=== PATIENT | female | born 1935 ===

== ENCOUNTER 2019-11-01 13:33 | Inpatient (IN) | payer OTHER, SELFPAY ==
[2019-11-01] MEDS ORDERED: Pantoprazole 40 MG VIAL ONE (14:06)
[2019-11-01 14:10] LABS: #Basophils 0.1 thou/uL (0.0-0.2); #Eosinphils 0.3 thou/uL (0.0-0.7); #Lymphocytes 1.9 thou/uL (1.20-3.40); #Monocytes 0.5 thou/uL (0.11-0.59); #Neutrophils 3.5 thou/uL (1.40-6.50); %Basophils 0.8 % (0.0-1.0); %Eosinophils 5.1 % (0.0-10.0); %Lymphocytes 30.2 % (21.0-51.0); %Monocytes 7.9 % (0.0-10.0); Hemoglobin 10.5 g/dL (12.0-16.0); Mean Corpuscular HGB CONC 33.7 g/dL (32.0-36.0); Mean Corpuscular Hemoglobin 31.4 pg (27.0-31.0); Mean Corpuscular Volume 93.3 fL (78.0-98.0); Mean Platelet Volume 8.5 fL (7.4-10.4); Platelet Count 178 thou/uL (130-400); RBC Distribution Width 13.2 % (11.5-14.5); Red Blood Cell (RBC) Count 3.35 mill/uL (4.20-5.40); White Blood Cell (WBC) Count 6.3 thou/uL (4.8-10.8)
[2019-11-01 14:17] LABS: Prothrombin Time 12.8 SEC (12.0-14.7)
--- NOTE | 2019-11-01 14:31 | RAD ---
Exam: Chest one view HISTORY:Nausea. Vomiting. Weakness. Comparison: None FINDINGS: Mediastinum: Rightward deviation of the trachea. Accentuation of the right mediastinum in part due to patient rotation. Nevertheless, there appears to be right hilar fullness. Cardiac silhouette: Normal Aorta: Unremarkable Pulmonary vessels: Normal Costophrenic angles: Small right-sided pleural effusion. LUNGS: Right hilar fullness. Mass cannot be excluded. Pneumothorax: None Osseous abnormalities: None IMPRESSION: 1. Right hilar fullness. The possibility of right hilar mass cannot be excluded. CT is recommended
[2019-11-01 14:34] LABS: ALT (SGPT) 9 U/L (8-55); AST (SGOT) 11 U/L (5-34); Albumin 3.4 g/dL (3.4-4.8); Alkaline Phosphatase 94 U/L (40-110); Anion Gap 9 mmol/L (10-20); BUN (Urea Nitrogen) 27 mg/dL (9.8-20.1); Bilirubin, Total 0.5 mg/dL (0.2-1.2); Calc. Creatinine Clearance 0 mL/min (70-130); Calcium 8.4 mg/dL (7.8-10.44); Carbon Dioxide 24 mmol/L (23-31); Chloride 111 mmol/L (98-107); Estimated GFR-MDRD 66; Globulin 2.5 g/dL (2.4-3.5); Glucose 75 mg/dL (83-110); Potassium 4.5 mmol/L (3.5-5.1); Protein, Total 5.9 g/dL (6.0-8.3); Sodium 139 mmol/L (136-145)
--- NOTE | 2019-11-01 15:40 | CT ---
EXAM: CT angiogram of the chest including 3-D rendering: HISTORY: Chest pain COMPARISON: None FINDINGS: There is adequate opacification of the pulmonary arteries. No evidence for aortic aneurysm or dissection. No convincing CT evidence for acute pulmonary embolism. There are some scattered very faint poorly defined groundglass opacity changes with a somewhat mosaic appearance of the chest bilaterally. No evidence for mediastinal mass or adenopathy. No evidence for pleural or pericardial effusion. The visualized upper abdomen is unremarkable. Evidence for moderately dilated proximal pulmonary artery segments evidence for pulmonary artery hype rtension. IMPRESSION: No convincing CT evidence for acute pulmonary embolism. Nonspecific bilateral groundglass opacity changes with a somewhat mosaic appearance of the chest. Peggy dence for dilated bilateral proximal pulmonary artery segments evidence for pulmonary artery hypertension.
[2019-11-01 17:12] LABS: Troponin I Less than 0.010 ng/mL (< 0.028)
[2019-11-01] MEDS ORDERED: Ondansetron ODT 4 MG TAB SL PRN (19:33)
[2019-11-01] MEDS ORDERED: Ondansetron PF 4 MG/2 ML Vial IVP PRN (19:33)
[2019-11-01] MEDS ORDERED: Pantoprazole 80 MG in Sodium Chloride 0.9% 100 ML IVPB SCH (19:45)
[2019-11-01 20:30] LABS: Hemoglobin 10.2 g/dL (12.0-16.0)
[2019-11-01 20:56] LABS: Troponin I Less than 0.010 ng/mL (< 0.028)
[2019-11-01 21:13] VITALS: BMI 31.4
[2019-11-01] MEDS ORDERED: Sodium Chloride 0.9% (PF) 10 ML VIAL FS PRN (22:58)
--- NOTE | 2019-11-01 23:47 | HP ---
CHIEF COMPLAINT: Feeling tired. HISTORY OF PRESENT ILLNESS: The patient is an 84-year-old female with a past medical history of hypertension, who presents to the hospital with complaints of 2 to 3 days of passing dark stools with some bright red blood. The patient also complained of feeling tired with some shortness of breath on exertion. Fecal occult blood test was positive in the ER. Hemoglobin appeared to be stable. The patient will be admitted to the hospital for further management. REVIEW OF SYSTEMS: Negative except as noted in HPI. PAST MEDICAL HISTORY: Positive for hypertension. PAST SURGICAL HISTORY: Unremarkable. SOCIAL HISTORY: Negative for smoking, alcohol, or illicit drug use. PHYSICAL EXAMINATION: GENERAL: The patient is alert and oriented x3. HEENT: Head is normocephalic and atraumatic. Extraocular muscles are intact. NECK: Supple. CHEST: Clear to auscultation bilaterally. CARDIOVASCULAR: Positive for normal S1, S2. No murmurs, rubs, or gallops. NEUROLOGIC: Unremarkable cranial nerve exam and no motor or sensory deficits. ASSESSMENT AND PLAN: 1. Melena, likely due to upper gastrointestinal bleeding. Continue to monitor hemoglobin levels. Continue IV Protonix 40 mg twice daily. Clear liquid diet. Consult GI. 2. Hypertension. Appears to be stable at this time. We will continue her home medications. Job ID: [id number]
[2019-11-02 05:48] LABS: Band 4 % (5-11); Eosinophils 12 % (0-10); Hemoglobin 9.2 g/dL (12.0-16.0); Hypochromia SLIGHT = 6-15 cells (100X) (0-5/hpf); Lymphocytes 22 % (21-51); MDiff Complete? YES; Mean Corpuscular HGB CONC 33.1 g/dL (32.0-36.0); Mean Corpuscular Hemoglobin 31.1 pg (27.0-31.0); Mean Platelet Volume 8.3 fL (7.4-10.4); Monocytes 2 % (0-10); Neutrophil 60 % (42-75); Platelet Count 157 thou/uL (130-400); Platelet Morphology Comment Appears Adequate; RBC Distribution Width 13.3 % (11.5-14.5); Red Blood Cell (RBC) Count 2.95 mill/uL (4.20-5.40)
[2019-11-02 06:02] LABS: Anion Gap 5 mmol/L (10-20); BUN (Urea Nitrogen) 19 mg/dL (9.8-20.1); Calc. Creatinine Clearance 56 mL/min (70-130); Calcium 7.9 mg/dL (7.8-10.44); Carbon Dioxide 26 mmol/L (23-31); Chloride 112 mmol/L (98-107); Estimated GFR-MDRD 73; Glucose 76 mg/dL (83-110); Potassium 4.2 mmol/L (3.5-5.1); Sodium 139 mmol/L (136-145)
[2019-11-02] MEDS: Pantoprazole 40 MG VIAL IVP SCH ×2 (07:49→20:19)
--- NOTE | 2019-11-02 15:03 | CON ---
DATE OF CONSULTATION: 11/02/2019 REASON FOR CONSULTATION: Possible GI bleeding. CONSULTING PROVIDER: Maury Briggs MD HISTORY OF PRESENT ILLNESS: The patient is an 84-year-old female with past medical history of hypertension, complaining of epigastric abdominal pain, and blood in her stool. She states that she was in her usual state of health until approximately 5 days ago when she began having increased epigastric abdominal pain characterized as a sharp/hard type sensation, was nonradiating, was intermittent and reached a severity of 3 to 4/10. This pain was worse with initiation of having a bowel movement and passing flatus, but actually better with after having a bowel movement or passing flatus as well. She also endorsed increased dizziness, shortness of breath, and back pain during this time. In addition to having approximately 2 to 3 dark stools per day with a questionable blood/red component to them. Upon further questioning the patient about her stools, she states that they may have been dark, but not black in coloration. Otherwise, she denies any additional symptoms including nausea, vomiting, fevers, chills, hematemesis, dysphagia, odynophagia, or weight loss. Of note, the patient has never undergone upper endoscopy or colonoscopy and she denies a family history of colon polyps or colon cancer. REVIEW OF SYSTEMS: A 10-category review of systems was obtained with all responses negative except for the pertinent positives as listed in HPI. PAST MEDICAL HISTORY: As per HPI. PAST SURGICAL HISTORY: None. FAMILY HISTORY: Denies any GI malignancies. SOCIAL HISTORY: Denies any tobacco, alcohol, or illicit drug use. OUTPATIENT MEDICATIONS: She was taking a stool softener plus simethicone that was prescribed from a physician in [place]. ALLERGIES: NO KNOWN DRUG ALLERGIES. PHYSICAL EXAMINATION: VITAL SIGNS: Temperature 97.8, pulse 67, blood pressure 90/59, respiratory rate 16, and saturating 95% on room air. GENERAL: The patient was sitting in a chair at bedside, in no acute distress. Urdu-speaking only. Alert and oriented x4. HEENT: Normocephalic and atraumatic. NECK: Supple. No JVD or scleral icterus noted. CARDIOVASCULAR: Regular rate and rhythm, but with frequent premature atrial complexes, contractions. No discernible murmurs, gallops, or rubs. RESPIRATORY: Clear to auscultation bilaterally. ABDOMEN: Normoactive bowel sounds. Soft and nondistended. Mild tenderness to palpation in the epigastric region, but otherwise unremarkable. EXTREMITIES: No cyanosis, clubbing, or edema. LABORATORY DATA: CBC with a white blood cell count of 4, hemoglobin 9.2, hematocrit 27.8, and platelets 157. Chemistry with a sodium of 139, potassium 4.2, chloride 112, CO2 of 26, BUN 19, creatinine 0.75, glucose 76, AST 11, ALT 9, alkaline phosphatase 94, and total bilirubin 0.5. BNP 179. IMAGING DATA: CT of the chest was obtained on November 01, 2019, which showed no evidence of aortic aneurysm or dilatation. There was no evidence of pulmonary embolism, although ground-glass opacity changes were seen bilaterally. There was no evidence of mediastinal mass or lymphadenopathy, but enlargement of the pulmonary veins concerning for pulmonary hypertension. ASSESSMENT AND PLAN: The patient is an 84-year-old female with past medical history of hypertension, presenting with anemia and possible gastrointestinal bleeding. Anemia/possible gastrointestinal bleeding: The patient is presenting with the acute onset of epigastric abdominal pain that has been present for the last week and associated with increased dizziness and shortness of breath. On evaluation here at [facility], she was noted to have a decreased hemoglobin and hematocrit concerning for possible bleeding source. Upon further questioning, the patient has been having blood in her stool, but it is unclear in terms of localization given that she describes both maroon and bright red blood per rectum. At this time, the etiology of her anemia source is unknown, but given the blood in her stool, could be due to a possible GI bleeding source. Differential could include esophagitis, gastritis, peptic ulcer disease, arteriovenous malformation, Dieulafoy lesion, ischemic colitis, and/or GI neoplasm. RECOMMENDATIONS: 1. We would continue to trend the patient's H and H and transfuse as necessary to maintain an H and H of 7/21. 2. Continue to monitor clinically for signs of active GI bleeding. 3. We would place the patient on a clear liquid diet today with GoLYTELY prep tonight (administer 2 L of GoLYTELY starting at 8:00 p.m. and the remaining 2 L at 3:00 a.m. tomorrow morning). We would place the patient n.p.o. at midnight in anticipation of procedures tomorrow. 4. We will plan for both EGD and colonoscopy tomorrow for evaluation of the GI tract and localization of possible bleeding. 5. We would continue the patient on pantoprazole 40 mg IV b.i.d. in light of possible upper GI bleeding source. 6. We would avoid any NSAIDs during this hospitalization. 7. Further recommendations to follow endoscopies. 8. We will continue to follow. Please call with any questions. Job ID: [id number]
[2019-11-02] MEDS ORDERED: GoLYTELY 4,000 ml Bottle PO SCH (17:00)
--- NOTE | 2019-11-02 22:34 | PDOC.HOSPP ---
- Subjective Encounter Date: 11/02/19 - Objective Vital Signs & Weight: Vital Signs (12 hours) Temp Pulse Resp BP Pulse Ox 11/02/19 19:07 97.7 F 75 18 140/77 95 11/02/19 12:00 97.8 F 67 16 90/59 L 95 Weight Admit Weight 145 lb Weight 145 lb I&O: 11/01/19 11/02/19 11/03/19 06:59 06:59 06:59 Intake Total 100 Balance 100 Result Diagrams: 11/02/19 05:22 11/02/19 05:22 Hospitalist ROS - Medication Medications: Active Medications Generic Name Dose Route Start Last Admin Trade Name Freq PRN Reason Stop Dose Admin Pantoprazole Sodium 40 mg 11/02/19 09:00 11/02/19 20:19 Protonix IVP 40 mg Q12HR MIKE Administration Polyethylene Glycol/Electrolytes 4,000 ml 11/02/19 17:00 11/02/19 17:43 Golytely PO 11/02/19 23:59 4,000 ml 1700 MIKE Administration - Exam General Appearance: awake alert Eye: PERRL Neck: supple, symmetric, no JVD, no thyromegaly Heart: RRR, no murmur, no gallops, no rubs, normal peripheral pulses Respiratory: CTAB, no wheezes, no rales, no ronchi, normal chest expansion Hosp A/P (1) GI bleeding Code(s): K92.2 - GASTROINTESTINAL HEMORRHAGE, UNSPECIFIED Status: Acute (2) HTN (hypertension) Code(s): I10 - ESSENTIAL (PRIMARY) HYPERTENSION Status: Acute - Plan H&H stable. Continue IV Protonix. Plan for EGD and colonoscopy tomorrow.
[2019-11-03 07:00] LABS: Mean Corpuscular HGB CONC 33.4 g/dL (32.0-36.0); Mean Corpuscular Hemoglobin 30.9 pg (27.0-31.0); Mean Corpuscular Volume 92.8 fL (78.0-98.0); Mean Platelet Volume 8.2 fL (7.4-10.4); Platelet Count 184 thou/uL (130-400); RBC Distribution Width 13.2 % (11.5-14.5); Red Blood Cell (RBC) Count 3.22 mill/uL (4.20-5.40); White Blood Cell (WBC) Count 3.7 thou/uL (4.8-10.8)
[2019-11-03 07:06] LABS: Eosinophils 9 % (0-10); Hypochromia SLIGHT = 6-15 cells (100X) (0-5/hpf); Lymphocytes 23 % (21-51); MDiff Complete? YES; Monocytes 6 % (0-10); Neutrophil 48 % (42-75); Platelet Morphology Comment Appears Adequate; Reactive Lymphocytes 14 % (0-10)
[2019-11-03 07:10] LABS: Anion Gap 12 mmol/L (10-20); BUN (Urea Nitrogen) 13 mg/dL (9.8-20.1); Calc. Creatinine Clearance 55 mL/min (70-130); Calcium 8.3 mg/dL (7.8-10.44); Carbon Dioxide 25 mmol/L (23-31); Chloride 108 mmol/L (98-107); Estimated GFR-MDRD 72; Glucose 71 mg/dL (83-110); Sodium 141 mmol/L (136-145)
[2019-11-03] MEDS: Pantoprazole 40 MG VIAL IVP SCH (08:57)
[2019-11-03] MEDS ORDERED: PROPOFOL 200 MG/20 ML VIAL ONE (11:11)
[2019-11-03] MEDS ORDERED: Promethazine HCl 25 MG/ML VIAL SLOW IVP PRN (11:46)
[2019-11-03] MEDS ORDERED: Promethazine HCl 25 MG/ML VIAL IM PRN (11:46)
[2019-11-03] MEDS ORDERED: Ondansetron HCl/PF 4 MG/2 ML Vial IVP PRN (11:46)
--- NOTE | 2019-11-03 12:46 | OP ---
DATE OF PROCEDURE: 11/03/2019 PROCEDURES PERFORMED: 1. Esophagogastroduodenoscopy with biopsy. 2. Colonoscopy with control of hemorrhage. INDICATIONS FOR PROCEDURE: Melena, hematochezia, anemia with possible GI origin. DESCRIPTION OF PROCEDURE: After the risks and benefits of the procedures were explained to the patient including risks of bleeding, infection, perforation, reactions to anesthesia, aspiration and/or pain, informed consent was obtained. The patient was then taken to the endoscopy suite where she was placed in the left lateral decubitus position followed by introduction of propofol via Anesthesia support. Once adequate sedation was achieved, the standard gastroscope was introduced into the mouth with intubation of the esophagus, stomach, and the proximal small intestines with the findings listed below. The patient tolerated the procedure well with no immediate perioperative complications. Upon conclusion of this portion of the procedure, all equipment was removed from the patient and the bed was rotated 180 degrees in anticipation of the colonoscopy. After a digital rectal examination was performed, the standard colonoscope was introduced into the rectum and advanced to the terminal ileum with only mild difficulty secondary to severe diverticular disease. The quality of the prep was good. The patient tolerated the procedure well with no immediate perioperative complications. Upon conclusion of the procedure, all equipment was removed from the patient and the patient was transferred to PACU in satisfactory condition. EGD FINDINGS: Esophagus: Normal-appearing mucosa was seen in the proximal, mid, and distal esophagus. There was no evidence of erosions, ulcerations, mass lesions, or active/recent bleeding. Stomach: Normal-appearing mucosa was seen in the gastric cardia, fundus, body, and along the greater curvature. However, 2 ulcerations were seen in the junction between the antrum and incisura, measuring approximately 3 to 5 mm in size, that were clean based and did not exhibit any high-risk stigmata of bleeding. Multiple biopsies were then taken from these ulcerations and placed in a specimen jar for further evaluation. Mild increased mucosal erythema was also seen in the gastric antrum in the prepyloric region, but there was no evidence of erosions with this finding. Duodenum: Normal-appearing mucosa was seen in both the duodenal bulb and second portion of the duodenum. There was no evidence of erosions, ulcerations, mass lesions, or active/recent bleeding. IMPRESSION: 1. Two 3- to 5-mm clean-based ulcers seen in the gastric antrum/incisura with no high-risk stigmata, status post biopsies for possible Helicobacter pylori (most likely source of recent bleeding). 2. Mild mucosal erythema in the gastric antrum without erosions. COLONOSCOPY FINDINGS: Digital rectal exam: Normal findings were seen on external examination. Colon findings: A moderate amount of old bloody fluid was seen in the cecum, ascending and proximal transverse colon, that did impede visualization somewhat, but was easily cleaned with aggressive irrigation and suctioning. Old blood was also seen within the terminal ileum, but there was no evidence of any abnormalities within the terminal ileum, that would generate active or recent bleeding. Innumerable diverticula were seen throughout the entire colon in the ascending, transverse, descending, and sigmoid colons, but with careful inspection of all these diverticula, most of them did not exhibit any evidence of active/recent bleeding. Otherwise normal-appearing mucosa was seen in the terminal ileum, the ileocecal valve, and appendiceal orifice. Normal-appearing mucosa was seen in the cecum, ascending, transverse, and descending colon. However, in the sigmoid colon at approximately 30 cm past the anal verge, a small diverticulum was seen with an adherent ulceration along the lip of the diverticulum itself. Aggressive irrigation and manipulation of the ulcer did not remove the ulcer and it did have a red spot, concerning for possible visible vessel or high-risk stigmata of recent bleeding. A hemoclip x1 was then placed to approximate the diverticulum with no evidence of bleeding at the end of the maneuver. Normal-appearing mucosa was then seen within the rectum with small internal hemorrhoids seen on rectal retroflexion. IMPRESSION: 1. Old blood seen in the right colon and terminal ileum, indicative more of an upper gastrointestinal bleed. 2. Severe pancolonic diverticulosis. 3. A diverticulum at 30 cm past the anal verge with possible ulceration and high-risk stigmata, status post hemoclip placement x1. 4. A 3-mm polyp seen in the sigmoid colon, but not removed during this examination due to increased risk of bleeding. 5. Small internal hemorrhoids. RECOMMENDATIONS: 1. Would continue to trend the patient's hemoglobin and hematocrit and transfuse as necessary to maintain the hemoglobin and hematocrit of 7/21. 2. Continue to monitor clinically for signs of active GI bleeding. 3. Would continue patient on PPI 40 mg b.i.d., but could transfer to oral formulation. 4. We will follow up on the biopsy results, and if positive for H pylori, would start the patient on triple therapy. 5. The patient will need a repeat upper endoscopy in 8 to 12 weeks to confirm healing of these gastric ulcerations. 6. Repeat colonoscopy/flexible sigmoidoscopy could be entertained at that time for removal of the sigmoid colon polyp. 7. Given the low risk of bleeding from either the lesion seen during this examination. Would start the patient on a regular diet. Given the low risk of rebleeding from the lesions seen today, the patient could be potentially discharged to home tomorrow after repeat hemoglobin and hematocrit. We will sign off at this time. Please call with any questions. Job ID: [id number]
--- NOTE | 2019-11-03 14:04 | PDOC.HOSPP ---
- Subjective Encounter Date: 11/03/19 Subjective: Tolerated EGD and Colonoscopy No new complains - Objective Vital Signs & Weight: Vital Signs (12 hours) Temp Pulse Resp BP Pulse Ox 11/03/19 12:22 97.8 F 72 16 129/58 L 94 L 11/03/19 08:00 92 L 11/03/19 07:16 97.9 F 73 18 118/74 92 L 11/03/19 03:56 97.6 F 82 18 125/79 92 L Weight Admit Weight 145 lb Weight 145 lb I&O: 11/02/19 11/03/19 11/04/19 06:59 06:59 06:59 Intake Total 100 Balance 100 Result Diagrams: 11/03/19 06:30 11/03/19 06:30 - Exam General Appearance: awake alert Eye: PERRL Neck: supple, no JVD Heart: RRR Respiratory: CTAB Gastrointestinal: soft, non-tender, non-distended Neurological: cranial nerve grossly intact, no weakness Hosp A/P (1) GI bleeding Code(s): K92.2 - GASTROINTESTINAL HEMORRHAGE, UNSPECIFIED Status: Acute (2) HTN (hypertension) Code(s): I10 - ESSENTIAL (PRIMARY) HYPERTENSION Status: Acute (3) Gastric ulcer Code(s): K25.9 - GASTRIC ULCER, UNSP ACUTE OR CHRONIC, W/O HEMOR OR PERF Status: Acute - Plan S/P EGD and Colonoscopy. Results showed Gastric ulcers. Biposy bending. Continue PPI. Follow H&H.
--- NOTE | 2019-11-03 14:58 | EKG ---
Test Reason : Blood Pressure : / mmHG Vent. Rate : 083 BPM Atrial Rate : 083 BPM P-R Int : 142 ms QRS Dur : 126 ms QT Int : 408 ms P-R-T Axes : 014 -08 014 degrees QTc Int : 479 ms Sinus rhythm with occasional Premature ventricular complexes Non-specific intra-ventricular conduction block Abnormal ECG Confirmed by JANET GARCIA, REMINGTON ([id number]), news video editor ALYSHA GROSS ([id number]) on 11/03/2019 2:58:26 PM Referred By: Confirmed By:REMINGTON GONZALES MD
[2019-11-03] MEDS ORDERED: Acetaminophen 325 MG TAB PO PRN (20:06)
[2019-11-03] MEDS: Pantoprazole 40 MG GRANULES PACKET PO SCH (20:38)
[2019-11-03] MEDS ORDERED: FLU VACC TS2019-20(65YR UP)/PF 180 MCG/0.5 ML SYRINGE IM ONE (21:00)
[2019-11-03] MEDS ORDERED: Prevnar 13-Val Conj/PF 0.5 ML SYRINGE IM ONE (21:00)
[2019-11-04 05:52] LABS: Eosinophils 2 % (0-10); Hemoglobin 9.7 g/dL (12.0-16.0); Lymphocytes 13 % (21-51); MDiff Complete? YES; Mean Corpuscular HGB CONC 32.9 g/dL (32.0-36.0); Mean Corpuscular Hemoglobin 30.6 pg (27.0-31.0); Mean Corpuscular Volume 92.9 fL (78.0-98.0); Mean Platelet Volume 7.8 fL (7.4-10.4); Monocytes 6 % (0-10); Neutrophil 79 % (42-75); Platelet Count 162 thou/uL (130-400); Platelet Morphology Comment Appears Adequate; RBC Distribution Width 13.2 % (11.5-14.5); RBC Morphology Normal; Red Blood Cell (RBC) Count 3.17 mill/uL (4.20-5.40); White Blood Cell (WBC) Count 5.5 thou/uL (4.8-10.8)
[2019-11-04 06:01] LABS: Anion Gap 9 mmol/L (10-20); BUN (Urea Nitrogen) 11 mg/dL (9.8-20.1); Calc. Creatinine Clearance 51 mL/min (70-130); Calcium 8.1 mg/dL (7.8-10.44); Carbon Dioxide 25 mmol/L (23-31); Chloride 108 mmol/L (98-107); Estimated GFR-MDRD 66; Glucose 92 mg/dL (83-110); Potassium 3.8 mmol/L (3.5-5.1); Sodium 138 mmol/L (136-145)
[2019-11-04] MEDS: Pantoprazole 40 MG GRANULES PACKET PO SCH (08:34)
[2019-11-04 11:57] VITALS: BP 120/70; TEMP 97.9
--- NOTE | 2019-11-04 14:51 | DIS ---
DATE OF ADMISSION: 11/01/2019 DATE OF DISCHARGE: 11/04/2019 DISCHARGE DIAGNOSES: 1. Gastrointestinal bleeding. 2. Gastric ulcer. 3. Hypertension. DISCHARGE MEDICATIONS: 1. Pantoprazole 40 mg orally twice daily for 1 month. 2. Telmisartan 40 mg orally daily. HISTORY OF PRESENT ILLNESS AND HOSPITAL COURSE: The patient is an 84-year-old female with past medical history of hypertension, who presented to the hospital with complaints of 2 to 3 days of passing dark stools with some red blood. She complained of feeling tired and with some shortness of breath on exertion. Fecal occult blood was positive in the ER. Her hemoglobin level appeared to be stable. The patient was admitted to the hospital and Gastroenterology Service was consulted. The patient subsequently underwent EGD and colonoscopy, and findings were as follows: 1. EGD findings. Esophagus was normal-appearing with no evidence of erosions, ulcerations, mass lesions, or active bleeding. The stomach showed two 3 to 5 mm clean based ulcers in the gastric antrum/incisura with no high risk stigmata, status post biopsies for possible Helicobacter. It also showed mild mucosal erythema in the gastric antrum. 2. Colonoscopy revealed old blood seen in the right colon and terminal ileum, indicative of upper gastrointestinal bleeding. Severe pancolonic diverticulosis. A 3 mm polyp seen in the sigmoid colon, but not removed during this examination due to increased risk of bleeding. We recommend follow up with biopsy results and if positive for H pylori, the patient to be started on triple therapy. We also recommend a repeat upper endoscopy in 8 to 12 weeks to confirm healing of the gastric ulcerations and repeat colonoscopy/flexible sigmoidoscopy could be entertained at that time for removal of the sigmoid polyp. I recommend outpatient followup with PCP in 1 week. Job ID: [id number]
--- NOTE | 2019-11-06 07:42 | PQF ---
MAHOGANY ALVARENGA MOEZ [id number] CLINICAL DOCUMENTATION CLARIFICATION FORM: POST DISCHARGE Addendum to original discharge summary date: ____ Late entry note date: __ DATE: 11/06/2019 ATTN: Maury Santaigo Please exercise your independent, professional judgment in responding to the clarification form. Clinical indicators are provided on the bottom of this form for your review Please check appropriate box(s): [ > ] Acute blood loss anemia [ ] Chronic Anemia: [ ] Blood loss [ ] Simple [ ] Other [ ] Other diagnosis [ ] Unable to determine In addition, please specify: Present on Admission (POA): [ ] Yes [ ] No [ ] Unable to determine For continuity of documentation, please document condition throughout progress notes and discharge summary. Thank You. CLINICAL INDICATORS - SIGNS / SYMPTOMS / LABS Laboratory 10/31 - RBC 3.38, Hgb 10.5; 10.2, Hct 31.2; 30.6 Microbiology 10/31 Positive for Fecal occult blood Vital signs BP: 10/3133=293/54 11/01=90/59 11/0271=206/58 H&P p1 10/31 p1 10/31 Dr Briggs presents to the hospital with complaints of 2- 3days of passing dark stools with some bright red blood H&P p1 10/31 p1 10/31 Dr Briggs Pt also complained of feeling tired with some shortness of breath on exertion H&P p1 10/31 p1 10/31 Dr Briggs Fecal occult blood test was positive in the ER H&P p1 10/31 p1 10/31 Dr Briggs Melena likely due to upper GI bleeding Consult p2 11/01 Dr. Mathews she was noted to have a decreased hemoglobin and hematocrit RISK FACTORS H&P p1 10/31 84 year old Female H&P p1 10/31 HTN Operative report p1 11/02 Anemia with possible GI origin Operative report p1 11/02 Gastric Ulcer Operative report p2 11/02 Diverticulosis with bleeding TREATMENTS: MAR 10/31 IV Protonix 40 mg MAR 10/31 IV NS 1L Fecal occult blood test 10/31 Monitor hemoglobin level 10/31 Clear liquid diet 10/31 GI consult 11/01 Tian Blackwell EGD and Colonoscopy on 11/[address] Mathews (This form is maintained as a part of the permanent medical record) 2014 [employer]. All Rights Reserved [email or web address]
== END 2019-11-04 13:38 | disposition home or self-care (01) | DRG 378 ==
LOC: ERS 13:33 → T4-B 17:40
PROVIDERS: ADMIT Internal Medicine; ATTEND Internal Medicine
PROC: 0W3P8ZZ Control Bleeding in Gastrointestinal Tract, Via Natural or Artificial Opening Endoscopic (ICD-10-PCS; principal; 2019-11-03)
PROC: 0DB78ZX Excision of Stomach, Pylorus, Via Natural or Artificial Opening Endoscopic, Diagnostic (ICD-10-PCS; 2019-11-03)
PROC: 3E0234Z Introduction of Serum, Toxoid and Vaccine into Muscle, Percutaneous Approach (ICD-10-PCS; 2019-11-03)
PROC: 3E02340 Introduction of Influenza Vaccine into Muscle, Percutaneous Approach (ICD-10-PCS; 2019-11-04)
DX: K57.31 Diverticulosis of large intestine without perforation or abscess with bleeding (principal); D62 Acute posthemorrhagic anemia; I10 Essential (primary) hypertension; K25.9 Gastric ulcer, unspecified as acute or chronic, without hemorrhage or perforation; K63.5 Polyp of colon; K64.8 Other hemorrhoids; Z23 Encounter for immunization; Z79.899 Other long term (current) drug therapy
CPT/HCPCS: 36415; 71045; 71275; 80048; 80053; 82274; 82550; 83880; 84484; 85007; 85025; 85027; 85610; 86850; 86900; 86901; 88305; 88312; 90471; 90662; 90670; 93005; 96361; 96374; C9113; G0008; G0009; J2405; J2704; J3490